=== PATIENT | female | born 1985 | race Caucasian/White ===

== ENCOUNTER → 2019-03-03 | Outpatient (CLI) | payer OTHER ==
--- NOTE | 2019-03-03 13:16 | KCIC ---
EXAM: Bilateral hands, 3 views. HISTORY: Polyarthralgia. COMPARISON: None. FINDINGS: 3 views of both hands are obtained. There is no fracture, dislocation or subluxation. The alignment and joint spaces are unremarkable. IMPRESSION: No acute osseous finding. Electronically signed by: Michelle Heller MD (03/03/2019 1:13 PM) [facility]
== END | disposition home or self-care (01) ==
LOC: KCIC 10:19
PROVIDERS: ATTEND Internal Medicine Rheumatology
DX: M25.542 Pain in joints of left hand (principal); M25.541 Pain in joints of right hand
CPT/HCPCS: 73130